=== PATIENT | male | born 1935 | race African-American/Black ===

== ENCOUNTER → 2017-12-10 | Outpatient (CLI) | payer MEDICARE, OTHER ==
[2017-12-10] MEDS: ALBUTEROL SULFATE 2.5 MG/3 ML NEBU. NEB (10:46)
== END | disposition home or self-care (01) ==
LOC: PF 10:01
DX: J98.8 Other specified respiratory disorders (principal)
CPT/HCPCS: 94060; 94640; J7613

== ENCOUNTER → 2017-12-12 | Outpatient (CLI) | payer MEDICARE, OTHER | END | disposition home or self-care (01) | LOC: ECHO 12:36 | DX: I25.10 Atherosclerotic heart disease of native coronary artery without angina pectoris (principal); I08.1 Rheumatic disorders of both mitral and tricuspid valves | CPT/HCPCS: 93306 ==

== ENCOUNTER → 2017-12-22 | Outpatient (CLI) | payer MEDICARE, OTHER ==
[2017-12-22] MEDS: REGADENOSON 0.4 MG/5 ML DISP.SYRIN. IV (09:21)
== END | disposition home or self-care (01) ==
LOC: NM 07:57
DX: I10 Essential (primary) hypertension (principal); J44.9 Chronic obstructive pulmonary disease, unspecified; R06.09 Other forms of dyspnea; F17.200 Nicotine dependence, unspecified, uncomplicated
CPT/HCPCS: 78452; 93017; 96374; 96375; 96376; A9500; J2785

== ENCOUNTER 2018-03-28 15:49 | Emergency (ER) | payer MEDICARE, OTHER ==
[2018-03-28] MEDS: IV NORMAL SALINE 1000ML BAG 1,000 ML IV (17:17)
[2018-03-28 17:24] LABS: ADD MAN DIFF? NO
[2018-03-28 17:26] LABS: BASO # 0.1 x10^3/uL (0.0-0.2); BASO % 1 % (0-3); EOS % 0 % (0-3); HEMATOCRIT 37.9 % (39.0-53.0); HEMOGLOBIN 12.6 g/dL (13.0-17.5); LYMPH % 9 % (24-48); MEAN CORPUSCULAR HEMOGLOBIN 27 pg (25-35); MEAN CORPUSCULAR HGB CONC 33 g/dL (31-37); MEAN CORPUSCULAR VOLUME 82 fL (79-100); MONO # 0.7 x10^3/uL (0.0-1.1); MONO % 6 % (0-9); NEUT # 8.8 x10^3uL (1.8-7.7); NEUT % 84 % (31-73); PLATELET COUNT 302 x10^3/uL (140-400); RED BLOOD COUNT 4.63 x10^6/uL (4.30-5.70); RED CELL DISTRIBUTION WIDTH 14.5 % (11.5-14.5); WHITE BLOOD COUNT 10.6 x10^3/uL (4.0-11.0)
[2018-03-28 17:34] LABS: ANION GAP 6 (6-14); BLOOD UREA NITROGEN 16 mg/dL (8-26); BUN/CREATININE RATIO 16 (6-20); CALCIUM 9.5 mg/dL (8.5-10.1); CARBON DIOXIDE 27 mmol/L (21-32); CHLORIDE 107 mmol/L (98-107); GFR 86.8; GLUCOSE 138 mg/dL (70-99); POTASSIUM 3.8 mmol/L (3.5-5.1); SODIUM 140 mmol/L (136-145)
[2018-03-28 17:39] LABS: ALBUMIN 3.2 g/dL (3.4-5.0); ALBUMIN/GLOBULIN RATIO 0.9 (1.0-1.7); ALK PHOS 65 U/L (46-116); ALT (SGPT) 18 U/L (16-63); AST (SGOT) 14 U/L (15-37); TOTAL BILIRUBIN 0.3 mg/dL (0.2-1.0); TOTAL PROTEIN 6.9 g/dL (6.4-8.2)
[2018-03-28 17:45] LABS: NT-PRO BNP 184 pg/mL (0-449)
[2018-03-28 18:05] LABS: BILIRUBIN,URINE NEGATIVE (NEG); COLOR,URINE YELLOW; GLUCOSE,URINE NEGATIVE (NEG); NITRITE,URINE NEGATIVE (NEG); PH,URINE 7.5; PROTEIN,URINE NEGATIVE (NEG-TRACE)
[2018-03-28 18:12] LABS: CLARITY,URINE HAZY
[2018-03-28 18:13] LABS: BACTERIA,URINE 0 /HPF (0-FEW); HYALINE CASTS, URINE FEW /HPF; RBC,URINE 0 /HPF (0-2); WBC,URINE 0 /HPF (0-4)
== END 2018-03-28 19:16 | disposition home or self-care (01) ==
LOC: ER 19:16
DX: R53.83 Other fatigue (principal); R63.0 Anorexia; E78.00 Pure hypercholesterolemia, unspecified; I10 Essential (primary) hypertension; F17.200 Nicotine dependence, unspecified, uncomplicated
CPT/HCPCS: 36415; 71045; 80053; 81001; 83880; 85025; 93005; 96360; 99285-25; J7030

== ENCOUNTER → 2018-05-29 | Outpatient (CLI) | payer MEDICARE, OTHER ==
[2018-03-28 18:36] VITALS: BP 132/67
[~2018-05-29] MED LIST: ASPI-630 PO; AZIT250T PO; BRIN8DRO OP; DILT240C2 PO; FLUT1DIS IH; IPRA4AER IH; LOVA40TA2 PO; MONT10TA9 PO; PRED20TA PO; PROAIR HFA8.5 GM INH; TAMS0.4C2 PO
[2018-05-29] MEDS: IOHEXOL 300 MG/ML 100ML VIAL. IV ONE (08:54)
--- NOTE | 2018-05-29 11:04 | RAD ---
EXAM: CT angiogram Abdomen with IV contrast CLINICAL HISTORY: MESENTERIC ARTERY STENOSIS. COMPARISON: 09/01/2014, 07/05/2016 TECHNIQUE: Helical CT angiogram of the abdomen was performed following the administration of intravenous contrast. Oral contrast was administered. Axial, coronal and sagittal reformatted images were generated. PQRS compliance statement - One or more of the following individualized dose reduction techniques were utilized for this study: 1. Automated exposure control 2. Adjustment of the mA and/or kV according to patient size 3. Use of iterative reconstruction technique FINDINGS: Lower chest: Bilateral emphysematous changes are seen. Dependent opacities bilaterally likely scarring/atelectasis. 4 mm right lower lobe lung nodule is stable to 09/01/2014. Heart is not enlarged. Coronary artery calcifications are seen. CT angiogram: Dense atherosclerotic calcifications of the aorta are seen. There is focal ectasia of the infrarenal aorta just proximal to the iliac bifurcation, measuring 2.2 cm in AP dimension, approximately measuring 1.5 cm proximally. Celiac axis: The origin of the celiac artery is patent however approximately 1.3 cm from the origin there is approximately 70% stenosis just proximal to the trifurcation.. SMA : Dense atherosclerotic calcifications at the origin although grossly patent.. HOME : Narrowing at the origin of the HOME.. Single bilateral renal arteries are patent. Right common iliac artery: Dense atheromatous plaquing, normal in caliber.. Visualized right external iliac artery: Dense atheromatous plaquing, normal in caliber. Visualized right internal iliac iliac artery: Dense atheromatous plaquing, normal in caliber. Moderate narrowing at the origin, likely 50-60 %. Left common iliac artery: Dense atheromatous plaquing, normal in caliber.. Left external iliac artery: Dense atheromatous plaquing, normal in caliber.. Left internal iliac iliac artery: Dense atheromatous plaquing, normal in caliber. Moderate narrowing at the origin, likely 50-60 %. Abdomen: Left and right hepatic lobe hypodense cystic lesions are seen. There is eventration left hemidiaphragm. Spleen is unremarkable. The gallbladder is not seen. Prominence of the common bile duct likely from post cholecystectomy state. Symmetric nephrograms. No focal renal lesion. No hydronephrosis. Visualized small and large bowel are grossly normal in caliber with moderate colonic stool content. No definite lymphadenopathy in the upper abdomen. Bones: Diffusely decreased bone mineral density. Bilateral L5 pars defects are seen with associated grade 1 anterolisthesis of L5 on S1. No definite aggressive osseous lesion is identified. IMPRESSION: 1. 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 2. 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 3. Dense atherosclerotic calcifications throughout the aorta and iliacs. There is 50-60% narrowing of the origin of the internal iliac arteries bilaterally. 4. Bilateral L5 pars defects with associated grade 1 anterolisthesis of L5 on S1. Electronically signed by: Elfego Garduno MD (05/29/2018 11:01 AM) [id number]
== END | disposition home or self-care (01) ==
LOC: CT 08:35
PROVIDERS: ATTEND Family Medicine
DX: I77.811 Abdominal aortic ectasia (principal); I77.1 Stricture of artery; I70.0 Atherosclerosis of aorta; M43.17 Spondylolisthesis, lumbosacral region; I10 Essential (primary) hypertension; E78.5 Hyperlipidemia, unspecified; E78.00 Pure hypercholesterolemia, unspecified; K21.9 Gastro-esophageal reflux disease without esophagitis; I25.10 Atherosclerotic heart disease of native coronary artery without angina pectoris; Z85.118 Personal history of other malignant neoplasm of bronchus and lung; Z68.1 Body mass index [BMI] 19.9 or less, adult; Z82.49 Family history of ischemic heart disease and other diseases of the circulatory system
CPT/HCPCS: 74175; Q9967

== ENCOUNTER → 2018-07-13 | Outpatient (CLI) | payer MEDICARE, OTHER ==
[2018-06-03 11:37] VITALS: BP 167/85
--- NOTE | 2018-07-13 16:17 | RAD ---
MRI of the brain without contrast 07/13/2018 Clinical History: Cognitive decline. Technique: Unenhanced T1-weighted sagittal and axial, T2-weighted axial and coronal and FLAIR, gradient echo and diffusion-weighted axial images of the brain were obtained. Findings: No previous imaging studies are available for comparison. Images from the study are degraded by patient motion. There is generalized parenchymal atrophy. Patchy, confluent and multiple focal areas of increased signal intensity are seen within the periventricular and subcortical white matter of both cerebral hemispheres along with the elie on the FLAIR and T2-weighted images consistent with areas of small vessel ischemic disease. 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 These measure 4 mm to 1.4 cm in size. No acute parenchymal abnormality is seen. No extra-axial fluid collection is seen. There is no MRI evidence of acute ischemia/infarction. Mild mucosal thickening in seen scattered throughout the paranasal sinuses. Normal flow voids are seen within the major vascular structures surrounding the brain parenchyma. Impression: No acute parenchymal abnormality is seen. Electronically signed by: Raphael Mills MD (07/13/2018 4:14 PM) [facility]
== END | disposition home or self-care (01) ==
LOC: MRI 14:26
DX: R41.89 Other symptoms and signs involving cognitive functions and awareness (principal); J32.9 Chronic sinusitis, unspecified
CPT/HCPCS: 70551

== ENCOUNTER → 2018-08-14 | Outpatient (CLI) | payer MEDICARE, OTHER ==
[2018-06-03 11:37] VITALS: BP 167/85
--- NOTE | 2018-08-14 11:10 | RAD ---
CT chest without contrast 08/14/2018 CLINICAL INDICATION: Pulmonary nodule. COMPARISON: CT chest 06/08/2016, 01/06/2015, 08/04/2011, 08/08/2008 TECHNIQUE: Multiple CT images of the chest were obtained without contrast. *One or more of the following individualized dose reduction techniques were utilized for this examination: 1. Automated exposure control. 2. Adjustment of the mA and/or kV according to patient size. 3. Use of iterative reconstruction technique. FINDINGS: Heart size is normal without significant pericardial effusion. Mild main pulmonary arterial enlargement measuring 3.3 cm. Thoracic aorta is normal in caliber for age with dense calcified atheromatous disease including the origins of the great vessels with luminal patency not assessed due to lack of intravenous contrast. Multiple mediastinal and bilateral hilar calcified granulomas. No axillary, mediastinal or hilar lymphadenopathy, though evaluation is limited due to lack of intravenous contrast. Thyroid is atrophic. Left lower lobectomy. Trachea is patent. No pleural effusion. Bilateral pleural calcified plaques. Moderate centrilobular and paraseptal emphysema. Unchanged pleural/parenchymal scarring throughout both lungs. There are retained or aspirated secretions in the bronchus intermedius and dependent right middle and lower lobe major segmental bronchi and bronchioles. There is a stable 0.4 cm noncalcified pulmonary nodule in the posterior right lower lobe series 3/image 237. There is a stable 0.5 cm subpleural noncalcified pulmonary nodule in the basilar right lower lobe series 3/image 263. Development of a spiculated nodule in the right upper lobe measuring 0.4 cm series 3/image 86. Diffuse bony demineralization. No destructive osseous lesions. Limited images of the upper abdomen: Multiple stable hepatic hypodensities in both lobes. Dense calcified atheromatous disease of the abdominal aorta and visualized major branch vessels. IMPRESSION: 1. Development of a spiculated noncalcified pulmonary nodule in the right upper lobe measuring 0.4 cm, indeterminate between benign infectious/inflammatory nodule versus primary lung malignancy. Short-term CT follow-up in 3 months is recommended. 2. Additional stable right pulmonary nodules, unchanged since 2007 and 2013. 3. Moderate emphysema. 4. Mild main pulmonary arterial enlargement, suggestive of pulmonary arterial hypertension. 5. Coronary artery calcifications. Electronically signed by: Franko Rizzo MD (08/14/2018 11:07 AM) [id number]
== END | disposition home or self-care (01) ==
LOC: CT 12:15
PROVIDERS: ATTEND Internal Medicine Pulmonary Disease
DX: J43.8 Other emphysema (principal); I25.10 Atherosclerotic heart disease of native coronary artery without angina pectoris; I70.0 Atherosclerosis of aorta; J84.10 Pulmonary fibrosis, unspecified; R91.8 Other nonspecific abnormal finding of lung field
CPT/HCPCS: 71250

== ENCOUNTER → 2018-12-18 | Outpatient (CLI) | payer MEDICARE, OTHER ==
[2018-06-03 11:37] VITALS: BP 167/85
[~2018-12-18] MED LIST changes: +ALBU2.5V8 INH; -PROAIR HFA8.5 GM INH
--- NOTE | 2018-12-18 12:23 | RAD ---
EXAM: Chest CT without intravenous contrast. HISTORY: Pulmonary nodule follow-up. TECHNIQUE: Computed tomographic images of the chest were obtained without contrast. Multiplanar reformatting was performed. *One or more of the following individualized dose reduction techniques were utilized for this examination: 1. Automated exposure control. 2. Adjustment of the mA and/or kV according to patient size. 3. Use of iterative reconstruction technique. COMPARISON: 08/14/2018 and 05/29/2018. FINDINGS: There has been no significant change in a 7 mm spiculated nodular opacity within the right upper lobe with slight surrounding groundglass. There is stable left lower lobe increased interstitial opacity with architectural distortion due to pleural-parenchymal scarring. There is slight increased opacity within the medial right lung base measuring approximately 2.5 cm, likely due to additional scarring or infiltrate. There is left lower lobe and lingular predominant bullous emphysema. There has been interval decrease in previously demonstrated right central and lower lobe bronchial wall thickening and mucous plugging. There may be a tiny residual mucous plug within the medial right lung base. There is calcified pleural plaque within the right greater than left thorax. There is stable enlarged central pulmonary vessels. The heart is normal in size. There is heavily calcified atherosclerotic plaque involving the coronary arteries and aorta and aortic branch vessels. There are calcified granulomas within the mediastinum, the majority of which are subcarinal in distribution. There are few additional stable prominent noncalcified mediastinal lymph nodes. There are small cysts within the liver, not formally assessed on this exam. There are splenic granulomas. There are calcifications along the pancreas, likely vascular or due to the sequela of chronic pancreatitis. There are degenerative changes throughout the spine. There is no acute osseous finding or suspicious osseous lesion. There is minimal anterior wedging and there are few minimal superior endplate depressions at the thoracic levels. There are few benign bone islands. IMPRESSION: 1. No significant change a 7 mm spiculated nodular opacity with surrounding groundglass within the right upper lobe, allowing for differences in slice position and measurement technique. This may be postinfectious or postinflammatory. However, continued short-term follow-up is recommended in 6 months to confirm longer-term stability. 2. Decrease in previously demonstrated right central and lower lobe bronchial wall thickening and mucous plugging. This can be seen as a sequela of bronchitis. 3. Increased focal opacity within the medial right lung base possibly due to scarring or focal infiltrate. Attention at the time of follow-up can be performed to confirm resolution or stability. 4. Severe bullous emphysema. 5. Aortic and coronary artery atherosclerosis. 6. Multiple hepatic cysts. 7. Calcified right greater than left pleural plaque. 8. Stable enlarged central pulmonary vessels likely due to chronic pulmonary artery hypertension. Fleischner Society recommendations (Radiology 2017): SOLID NODULES Solitary solid nodule <6 mm - low-risk patient: no routine follow-up required - high-risk patient: optional CT at 12 months (particularly with suspicious nodule morphology and/or upper lobe location) Solitary solid nodule 6-8 mm - low-risk patient: CT at 6-12 months, then consider CT at 18-24 months - high risk patient: CT at 6-12 months, then if persistent CT at 18-24 months Solitary solid nodule >8 mm - consider CT at 3 months, PET/CT, or tissue sampling Multiple solid nodules <6 mm - low-risk patient: no routine follow-up required - high-risk patient: optional CT at 12 months Multiple solid nodules >6 mm - low-risk patient: CT at 3-6 months, then consider CT at 18-24 months - high risk patient: CT at 3-6 months, then if persistent CT at 18-24 months SUBSOLID NODULES Solitary ground glass nodule <6 mm - no routine follow-up required Solitary ground glass nodule > or = 6 mm - CT at 6-12 months, then if persistent CT every 2 years until 5 years Solitary part solid nodule > or = 6mm - CT at 3-4 months, the if persistent and solid component remains <6 mm, annual CT until 5 years Multiple subsolid nodules <6 mm - CT at 3-6 months, then if stable consider CT at 2 and 4 years in high risk patients Multiple subsolid nodules > or = 6 mm - CT at 3-6 months, then subsequent management based on the most suspicious nodule(s) Electronically signed by: Bettina Ortiz MD (12/18/2018 12:20 PM) [id number]
== END | disposition home or self-care (01) ==
LOC: CT 10:32
PROVIDERS: ATTEND Internal Medicine Pulmonary Disease
DX: R91.1 Solitary pulmonary nodule (principal); J43.9 Emphysema, unspecified; J92.9 Pleural plaque without asbestos; K76.89 Other specified diseases of liver; D73.89 Other diseases of spleen; R91.8 Other nonspecific abnormal finding of lung field; I25.10 Atherosclerotic heart disease of native coronary artery without angina pectoris
CPT/HCPCS: 71250

== ENCOUNTER → 2019-03-18 | Outpatient (CLI) | payer MEDICARE, OTHER ==
[2018-06-03 11:37] VITALS: BP 167/85
[~2019-03-18] MED LIST changes: +MONT10TA49 PO; -MONT10TA9 PO
--- NOTE | 2019-03-18 11:28 | RAD ---
FDG tumor localization scan, PET/CT, 03/18/2019: HISTORY: Squamous cell cancer of the larynx Following IV injection of 14.9 mCi of 18 F-FDG, imaging was performed from the skull base through the proximal thighs. The noncontrast CT component was performed for attenuation correction and anatomic localization purposes rather than for primary diagnosis. The patient's blood glucose level at time of injection was 120 MG/DL. There is a small hypermetabolic focus at the level of the vocal cords anteriorly demonstrate a maximum SUV of 10.9. This corresponds to an area of soft tissue thickening centered on the left. The findings are compatible with the given history of laryngeal malignancy. There is mild symmetric activity within both lobes of the thyroid gland which is not considered to be abnormal. No hypermetabolic cervical adenopathy is seen. There is increased activity in the cervical spine on the right which is likely due to facet joint arthropathy. Emphysematous changes are present in the lungs. There is a 7 mm nonsolid opacities in the right upper lobe which is unchanged since 12/18/2018. This does not demonstrate abnormal FDG uptake. There is a 5 mm subpleural nodule in the posterior aspect of the right lower lobe which is also FDG-PET negative. This nodule is unchanged since 01/06/2015 suggesting a benign etiology. There are small foci of increased activity at both [place] with maximum SUV measurements of 3.4 on the right and 3.2 on the left. There is a small focus of abnormal precarinal activity with a maximum SUV of 3.9. There is low level subcarinal activity adjacent to a densely calcified lymph node. The noncontrast CT component shows no obvious enlarged nodes at these levels. Normal GI tract and urinary tract activity is present in the abdomen and pelvis. No hypermetabolic abdominal or pelvic lesion is seen. Incidental CT findings include the presence of extensive calcific plaquing of the the aorta and its branches including the carotid bifurcations and the coronary arteries. There is mild dilatation of the infrarenal abdominal aorta which measures 3 cm. There are emphysematous changes in the lungs with scattered parenchymal scars. Calcific pleural plaquing is present more so on the right, raising the possibility of previous asbestos exposure. Low-density hepatic lesions are probably cysts. IMPRESSION: 1. Hypermetabolic laryngeal mass compatible with the patient's known laryngeal malignancy. 2. No FDG-PET evidence of metastatic disease in the neck. 3. Mildly hypermetabolic foci at at both [place] and in the mediastinum which may be on a reactive or metastatic basis. 4. Nonsolid right upper lobe pulmonary nodule which is FDG-PET negative. This may be due to its small size and lack of significant solid component. Further CT follow-up is suggested. 5. Long-standing stable right lower lobe pulmonary nodule which is FDG-PET negative. 6. Incidental CT findings as described above.
== END | disposition home or self-care (01) ==
LOC: PETSC 08:48
PROVIDERS: ATTEND Otolaryngology
DX: C32.9 Malignant neoplasm of larynx, unspecified (principal); J43.9 Emphysema, unspecified; I70.0 Atherosclerosis of aorta; R91.1 Solitary pulmonary nodule; Z85.21 Personal history of malignant neoplasm of larynx
CPT/HCPCS: 78815; A9552

== ENCOUNTER → 2019-12-17 | Outpatient (CLI) | payer MEDICARE, OTHER ==
[2018-06-03 11:37] VITALS: BP 167/85
[~2019-12-17] MED LIST changes: +ASPI81TA50 PO; +MIRT15TA PO
--- NOTE | 2019-12-17 11:09 | RAD ---
CT of the chest without contrast 12/17/2019 INDICATION: Lung nodule. History of lung cancer. COMPARISON STUDY: CT of the chest without contrast December 18, 2018. CT of the chest without contrast July 05, 2016. FINDINGS: CT imaging of the chest was performed without contrast. FINDINGS: The previously described noncalcified nodule in the right lower lobe measures 6 mm on today's study previously measuring 6 mm, when measured in a comparable fashion. 6 to 7 mm somewhat spiculated nodule in the superior right upper lobe is also unchanged. On today's exam there is linear opacification in the right lower lobe with an appearance favoring atelectasis. Severe centrilobular emphysematous changes are again noted throughout the bilateral lungs. Calcified pleural plaquing is seen most prominently in the anterior right thorax. There is no pneumothorax, pleural effusion, or definitive acute consolidative infiltrate. Heart size remains normal. Dense coronary and aortic calcification is seen. Dense calcification of a subcarinal mediastinal lymph node complex is noted. The overall unchanged. Calcification in the right thyroid is similar. Limited visualization of the upper abdomen demonstrates multiple hepatic hypodensities consistent with cysts. No acute abnormality of the upper abdomen is identified. No acute osseous abnormalities are identified. IMPRESSION: 1. Stable 6 mm noncalcified nodule, right lower lobe. Stable 6 to 7 mm noncalcified nodule, superior right upper lobe. 2. Multifocal subsegmental atelectasis most prominent in the lower lobes, new from prior study 3. Given history, consider annual low-dose CT chest as clinically feasible. CT DOSING PQRS STATEMENT: One or more of the following individualized dose reduction techniques were utilized for this examination: 1. Automated exposure control 2. Adjustment of the mA and/or kV according to patient size 3. Use of iterative reconstruction technique Electronically signed by: Sumit Garcia MD (12/17/2019 11:06 AM) [id number]
== END | disposition home or self-care (01) ==
LOC: CT 08:01
PROVIDERS: ATTEND Internal Medicine Pulmonary Disease
DX: J43.2 Centrilobular emphysema (principal); R91.1 Solitary pulmonary nodule; J98.11 Atelectasis; J94.8 Other specified pleural conditions; I70.0 Atherosclerosis of aorta; I25.10 Atherosclerotic heart disease of native coronary artery without angina pectoris
CPT/HCPCS: 71250